=== PATIENT | female | born 1995 | race Caucasian/White ===

== ENCOUNTER 2020-03-21 19:22 | Emergency (ER) | payer OTHER, SELFPAY ==
[2020-03-21 19:31] VITALS: BP 140/75; PULSE 91; RESP 14; TEMP 36.8; O2SAT 100; BMI 40.4
--- NOTE | 2020-03-21 20:15 | ED_ITS ---
Documented by User: Bridget Gonzales 03/21/20 22:06 HPI - Abdominal Pain General: Chief Complaint: Abdominal Pain Stated Complaint: kidney problems Time Seen by Provider: 03/21/20 20:07 Source: patient Mode of arrival: ambulatory Limitations: no limitations History of Present Illness: HPI narrative: Kristyn is a nice 24-year-old female comes in complaining bilateral lower back pain. She states she feels like she has a kidney infection. She had similar kidney infections in the past with similar symptoms. She denies fever or vomiting. She had nausea. States she has urinary frequency, urgency and dysuria. Patient denies any flank pain or pain that radiates around from her upper back to her lower back. All her pain is located in her lower back and is bilateral. Patient denies any chest pain, vaginal discharge or bleeding, diarrhea or any other complaint. Associated Symptoms: Reports dysuria and nausea; Denies chills, coffee ground emesis, constipation, GI cramping, diarrhea, fever(s), heartburn, hematochezia, hematuria, hematemesis, melena, syncope and vomiting Review of Systems Const: Denies: fever(s), chills, body aches, fatigue, malaise or diaphoresis Eyes: Denies: change in vision, blurry vision, photophobia, eye discomfort, eye discharge, eye redness or yellow eyes ENMT: Denies: throat pain, odynophagia, hoarseness, swelling of lips/tongue, ear or mastoid pain, ear discharge, change in hearing or nasal discharge Card: Denies: chest pain, palpitations, irregular heart rhythm, edema, lightheadedness, syncope, pre-syncope, dyspnea on exertion or orthopnea Resp: Denies: dyspnea, productive cough, non-productive cough, wheezing, hemoptysis or chest congestion GI: Reports: nausea; Denies: abdominal pain, vomiting, hematemesis, coffee ground emesis, heartburn, diarrhea, constipation, GI cramping, hematochezia or melena : Reports: dysuria, urinary frequency and urinary urgency; Denies: flank pain or hematuria Musc: Denies: neck pain, extremity pain, extremity swelling, joint pain, joint swelling, joint redness, joint warmth or joint stiffness Skin/Breast: Denies: rash, pruritus, erythema, skin pain or skin tenderness Neuro: Denies: headache(s), numbness in extremities, weakness in extremities, sensory changes, lack of coordination, difficulty walking, dizziness, vertigo, confusion, Slurred speech present or seizure-like activity Tenzin/Lymph: Denies: easy bruising, easy bleeding, petechiae, purpura or enlarged lymph nodes All/Imm: Denies: urticaria, throat swelling, tongue swelling, facial swelling or acute wheezing PFSH ED PFSH: Medical History (Updated 03/21/20 @ 22:46 by Leia Rosales MD) Hypothyroidism Surgical History (Updated 03/21/20 @ 20:17 by Bridget Gonzales) S/P cholecystectomy Social History (Updated 03/21/20 @ 18:31 by Ingrid Melissa LPN) Smoking and tobacco status: never smoked Alcohol intake: never Physical Exam Const: COMMON NORMALS: no acute distress, patient oriented x3, no limitations and alert GENERAL APPEARANCE: cooperative HENMT: COMMON NORMALS: normocephalic, atraumatic, external ears normal, EAC's normal and Normal external nose present HEAD & SCALP: normal to inspection, normocephalic and atraumatic FACE & SINUS: normal facial exam and face symmetric NOSE: Normal external nose present and Normal nares present EXTERNAL EAR: Yes external ears normal EXTERNAL AUDITORY CANAL: EAC's normal MOUTH: Normal oral and palatal mucosa present, lip normal and tongue normal Eye: COMMON NORMALS: Equal, round and reactive pupils present and conjunctivae normal GENERAL EYE: appearance normal, both eyes and all related structures ALIGNMENT: Yes alignment normal PERIORBITAL: periorbital findings normal EYELID: eyelids normal CONJUNCTIVA: Yes conjunctivae normal SCLERA: sclerae normal PUPIL: Yes Equal, round and reactive pupils present Neck/C-Spine: COMMON NORMALS: full ROM, no lymphadenopathy, supple, no meningeal signs and no JVD GENERAL: Yes normal visual inspection and Yes trachea midline Chest: COMMONS NORMALS: normal inspection of the chest and normal palpation of entire chest wall Resp: COMMON NORMALS: normal respiratory effort, No retractions, No use of accessory muscles and clear to auscultation bilaterally EFFORT & INSPECTION: Yes able to speak in complete sentences and Yes symmetric chest movement AUSCULTATION: clear to auscultation bilaterally, no crackles, no rales, no rhonchi and no wheezes Cardio: COMMON NORMALS: no JVD, regular rate, regular rhythm, S1 normal heart sound present and S2 normal heart sound present RATE: regular rate RHYTHM: regular rhythm HEART SOUNDS: S1 normal heart sound present, S2 normal heart sound present, no click, no gallops, no murmurs and no rubs GI: COMMON NORMALS: Soft to palpation and No hepatosplenomegaly present PALPATION: Yes Soft to palpation, No Tenderness to palpation present (GI), No Guarding due to palpation present (GI), No Rigid due to palpation, Yes No hepatosplenomegaly present, No Hernia present, No Palpable mass present and No Pulsatile mass present : COMMON NORMALS: Yes no CVA tenderness BLADDER/KIDNEY EXAM: Yes no CVA tenderness EXTERNAL FEMALE EXAM: No Hernia present Back/Pelvis: COMMON NORMALS: no CVA tenderness, thoracic and lumbar spine normal to inspection, no thoracic nor lumbar tenderness and thoraco-lumbar ROM normal Extremity: COMMON NORMALS: normal to inspection, full ROM, capillary refill normal, no joint enlargement, no clubbing, cyanosis or edema and no calf tenderness Neuro: COMMON NORMALS: patient oriented x3, CN's II-XII intact bilaterally, moves all extremities, no focal motor deficits and no sensory deficits noted SENSORIUM/ORIENTATION: Yes alert MENINGEAL SIGNS: Yes no meningeal signs SPEECH: speech normal Psych: COMMON NORMALS: mental status grossly normal, Normal thought process present, cooperative, normal affect, speech normal and activity/motor behavior normal SPEECH: Yes normal speech THOUGHT PROCESS: Normal thought process present Skin: COMMON NORMALS: no rashes or lesions noted, turgor normal, no jaundice, no petechiae and no mottling GENERAL SKIN EXAM: no rashes or lesions noted and turgor normal Course Vital Signs: Vital signs: Vital Signs Temperature 98.3 F 03/21/20 19:31 Pulse Rate 90 03/21/20 22:58 Respiratory Rate 16 03/21/20 22:58 Blood Pressure 128/78 03/21/20 22:58 Pulse Oximetry 95 03/21/20 22:58 MDM - Abdominal Pain Lab Data: Labs: Lab Results 03/21/20 03/21/20 03/21/20 Range/Units 20:20 20:20 20:20 WBC 12.5 H (4.0-10.0) 10^3/ uL RBC 5.12 (4.1-5.3) 10^6/u L Hgb 11.9 (11.5-15.3) g/dL Hct 38.3 (37.0-47.0) % MCV 74.8 L (81-99) fL MCH 23.2 L (28.0-34.0) pg MCHC 31.1 (30.0-36.0) g/dL RDW 16.2 H (12.1-15.1) % Plt Count 400 (130-400) 10^3/c mm MPV 9.9 (7.4-10.4) fL Neut % (Auto) 72.4 % Lymph % (Auto) 20.1 % [place] % (Auto) 5.9 % Eos % (Auto) 0.8 % Baso % (Auto) 0.5 % Neut # (Auto) 9.02 H (1.8-7.7) 10^3/u L Lymph # (Auto) 2.5 (0.8-4.8) 10^3/u L [place] # (Auto) 0.7 (0.2-0.9) 10^3/u L Eos # (Auto) 0.1 (0.0-0.8) 10^3/u L Baso # (Auto) 0.1 (0.0-0.1) 10^3/u L Nucleated RBC % (a uto) 0 % Nucleated RBCs # 0.0 /100WBC Sodium 135 L (136-145) mmol/L Potassium 4.0 (3.5-5.1) mmol/L Chloride 100 (98-107) mmol/L Carbon Dioxide 23 (22-29) mmol/L Anion Gap 16.0 (5-19) BUN 10 (6-20) mg/dL Creatinine 0.8 (0.5-0.9) mg/dL GFR Calculation 88.9 L (90-130) mL/min Glucose 104 (65-115) mg/dL Calculated Osmolal ity 279 L (285-295) mOsm/k g Lactic Acid (0.5-2.2) mmol/L Calcium 9.5 (8.5-10.5) mg/dL Total Bilirubin 0.2 (0.15-1.2) mg/dL AST 18 (0-32) U/L ALT 13 (0-33) U/L Alkaline Phosphata se 100 (35-105) IU/L Total Protein 8.1 (6.6-8.7) g/dL Albumin 4.2 (3.5-5.2) g/dL Globulin 3.9 (1.3-4.6) g/dL Lipase 32 (13-60) U/L HCG, Qual Negative (Negative) Urine Color Urine Appearance Urine pH Ur Specific Gravit y Urine Protein Urine Glucose (UA) Urine Ketones Urine Blood Urine Nitrate Urine Bilirubin Prot Sulfosalicyli c Acd Urine Urobilinogen Ur Leukocyte Diamond ase Urine RBC Urine WBC Ur Squamous Epith Cells Ur Transition Epit h Cell Ur Renal Epithelia l Cell Calcium Oxalate Cr ystal Uric Acid Crystals Triple Phos Sally ls Other Crystals Amorphous Sediment Urine Bacteria Hyaline Casts Fine Granular Cast s Coarse Granular Ca sts RBC Casts Other Casts Urine Mucus Urine Trichomonas Urine Yeast Urine Sperm Ur Oval Fat Bodies 03/21/20 03/21/20 03/21/20 Range/Units 20:20 20:44 21:49 WBC (4.0-10.0) 10^3/ uL RBC (4.1-5.3) 10^6/u L Hgb (11.5-15.3) g/dL Hct (37.0-47.0) % MCV (81-99) fL MCH (28.0-34.0) pg MCHC (30.0-36.0) g/dL RDW (12.1-15.1) % Plt Count (130-400) 10^3/c mm MPV (7.4-10.4) fL Neut % (Auto) % Lymph % (Auto) % [place] % (Auto) % Eos % (Auto) % Baso % (Auto) % Neut # (Auto) (1.8-7.7) 10^3/u L Lymph # (Auto) (0.8-4.8) 10^3/u L [place] # (Auto) (0.2-0.9) 10^3/u L Eos # (Auto) (0.0-0.8) 10^3/u L Baso # (Auto) (0.0-0.1) 10^3/u L Nucleated RBC % (a uto) % Nucleated RBCs # /100WBC Sodium (136-145) mmol/L Potassium (3.5-5.1) mmol/L Chloride (98-107) mmol/L Carbon Dioxide (22-29) mmol/L Anion Gap (5-19) BUN (6-20) mg/dL Creatinine (0.5-0.9) mg/dL GFR Calculation (90-130) mL/min Glucose (65-115) mg/dL Calculated Osmolal ity (285-295) mOsm/k g Lactic Acid 1.8 (0.5-2.2) mmol/L Calcium (8.5-10.5) mg/dL Total Bilirubin (0.15-1.2) mg/dL AST (0-32) U/L ALT (0-33) U/L Alkaline Phosphata se (35-105) IU/L Total Protein (6.6-8.7) g/dL Albumin (3.5-5.2) g/dL Globulin (1.3-4.6) g/dL Lipase (13-60) U/L HCG, Qual (Negative) Urine Color Cancelled Cancelled Urine Appearance Cancelled Cancelled Urine pH Cancelled Cancelled Ur Specific Gravit y Cancelled Cancelled Urine Protein Cancelled Cancelled Urine Glucose (UA) Cancelled Cancelled Urine Ketones Cancelled Cancelled Urine Blood Cancelled Cancelled Urine Nitrate Cancelled Cancelled Urine Bilirubin Cancelled Cancelled Prot Sulfosalicyli c Acd Cancelled Cancelled Urine Urobilinogen Cancelled Cancelled Ur Leukocyte Diamond ase Cancelled Cancelled Urine RBC Cancelled Urine WBC Cancelled Ur Squamous Epith Cells Cancelled Ur Transition Epit h Cell Cancelled Ur Renal Epithelia l Cell Cancelled Calcium Oxalate Cr ystal Cancelled Uric Acid Crystals Cancelled Triple Phos Sally ls Cancelled Other Crystals Cancelled Amorphous Sediment Cancelled Urine Bacteria Cancelled Hyaline Casts Cancelled Fine Granular Cast s Cancelled Coarse Granular Ca sts Cancelled RBC Casts Cancelled Other Casts Cancelled Urine Mucus Cancelled Urine Trichomonas Cancelled Urine Yeast Cancelled Urine Sperm Cancelled Ur Oval Fat Bodies Cancelled 03/21/20 Range/Units 21:49 WBC (4.0-10.0) 10^3/ uL RBC (4.1-5.3) 10^6/u L Hgb (11.5-15.3) g/dL Hct (37.0-47.0) % MCV (81-99) fL MCH (28.0-34.0) pg MCHC (30.0-36.0) g/dL RDW (12.1-15.1) % Plt Count (130-400) 10^3/c mm MPV (7.4-10.4) fL Neut % (Auto) % Lymph % (Auto) % [place] % (Auto) % Eos % (Auto) % Baso % (Auto) % Neut # (Auto) (1.8-7.7) 10^3/u L Lymph # (Auto) (0.8-4.8) 10^3/u L [place] # (Auto) (0.2-0.9) 10^3/u L Eos # (Auto) (0.0-0.8) 10^3/u L Baso # (Auto) (0.0-0.1) 10^3/u L Nucleated RBC % (a uto) % Nucleated RBCs # /100WBC Sodium (136-145) mmol/L Potassium (3.5-5.1) mmol/L Chloride (98-107) mmol/L Carbon Dioxide (22-29) mmol/L Anion Gap (5-19) BUN (6-20) mg/dL Creatinine (0.5-0.9) mg/dL GFR Calculation (90-130) mL/min Glucose (65-115) mg/dL Calculated Osmolal ity (285-295) mOsm/k g Lactic Acid (0.5-2.2) mmol/L Calcium (8.5-10.5) mg/dL Total Bilirubin (0.15-1.2) mg/dL AST (0-32) U/L ALT (0-33) U/L Alkaline Phosphata se (35-105) IU/L Total Protein (6.6-8.7) g/dL Albumin (3.5-5.2) g/dL Globulin (1.3-4.6) g/dL Lipase (13-60) U/L HCG, Qual (Negative) Urine Color Yellow Urine Appearance Clear Urine pH 6.5 Ur Specific Gravit y 1.005 Urine Protein Neg Urine Glucose (UA) Norm Urine Ketones Negative Urine Blood 3+ H Urine Nitrate Negative Urine Bilirubin Neg Prot Sulfosalicyli c Acd Urine Urobilinogen Norm Ur Leukocyte Diamond ase 2+ H Urine RBC 25-40 H Urine WBC 55-80 H Ur Squamous Epith Cells 15-25 H Ur Transition Epit h Cell Ur Renal Epithelia l Cell Calcium Oxalate Cr ystal Uric Acid Crystals Triple Phos Sally ls Other Crystals Amorphous Sediment Not Reportable Urine Bacteria 1+ H Hyaline Casts Fine Granular Cast s Coarse Granular Ca sts RBC Casts Other Casts Urine Mucus Urine Trichomonas Urine Yeast Urine Sperm Ur Oval Fat Bodies Discharge Plan Discharge Patient Disposition: Home Clinical Impression: Acute cystitis Qualifiers: Hematuria presence: without hematuria Qualified Code(s): N30.00 - Acute cystitis without hematuria Condition: Stable Prescriptions: [place] 5-325 mg tablet 1 tab PO Q6H PRN (Reason: pain) Qty: 14 RF: 0 Keflex 500 mg capsule 500 mg PO Q6H 7 Days Qty: 28 RF: 0 ondansetron 4 mg tablet,disintegrating 4 mg PO Q6H PRN (Reason: nausea and vomiting) Qty: 14 RF: 0 Cipro 500 mg tablet 500 mg PO BID Qty: 10 RF: 0 No Action ciprofloxacin HCl [Cipro] 500 mg tablet 500 mg PO BID 7 Days Qty: 14 RF: 0 Discharge Orders: Discharge Order (Routine); Ordered 03/21/20 Ordered By: Leia Rosales Discharge Diet: Advance as tolerated Discharge Activity: Resume usual activity Patient Instructions: Urinary Tract Infection in Women (ED) Discharge Date/Time: 03/21/20 22:59 Sign Out Sign Out Data: Patient Sign Out occurred on 03/21/20 at 22:26. Patient's care was discussed, and care was transferred from to EDDEI Jolley. Coding Level of Care Code ED Wire Galvanizer for Chg Fwd Exam Comprehensive Documented by User: Leia Rosales MD 03/21/20 23:01 HPI - Abdominal Pain General: Chief Complaint: Abdominal Pain Stated Complaint: kidney problems Time Seen by Provider: 03/21/20 20:07 PFSH ED PFSH: Medical History (Updated 03/21/20 @ 22:46 by Leia Rosales MD) Hypothyroidism Surgical History (Updated 03/21/20 @ 20:17 by Bridget Gonzales) S/P cholecystectomy Social History (Updated 03/21/20 @ 18:31 by Ingrid Melissa LPN) Smoking and tobacco status: never smoked Alcohol intake: never Course Vital Signs: Vital signs: Vital Signs Temperature 98.3 F 03/21/20 19:31 Pulse Rate 90 03/21/20 22:58 Respiratory Rate 16 03/21/20 22:58 Blood Pressure 128/78 03/21/20 22:58 Pulse Oximetry 95 03/21/20 22:58 MDM - Abdominal Pain MDM Narrative: Medical decision making narrative: Patient presents here with cystitis possible pyelonephritis. Patient CT scan here shows no kidney stone. Will place patient on antibiotics along with pain meds. She is stable for discharge and return if worsening. Lab Data: Labs: Lab Results 03/21/20 03/21/20 03/21/20 Range/Units : 20:20 20:20 WBC 12.5 H (4.0-10.0) 10^3/ uL RBC 5.12 (4.1-5.3) 10^6/u L Hgb 11.9 (11.5-15.3) g/dL Hct 38.3 (37.0-47.0) % MCV 74.8 L (81-99) fL MCH 23.2 L (28.0-34.0) pg MCHC 31.1 (30.0-36.0) g/dL RDW 16.2 H (12.1-15.1) % Plt Count 400 (130-400) 10^3/c mm MPV 9.9 (7.4-10.4) fL Neut % (Auto) 72.4 % Lymph % (Auto) 20.1 % [place] % (Auto) 5.9 % Eos % (Auto) 0.8 % Baso % (Auto) 0.5 % Neut # (Auto) 9.02 H (1.8-7.7) 10^3/u L Lymph # (Auto) 2.5 (0.8-4.8) 10^3/u L [place] # (Auto) 0.7 (0.2-0.9) 10^3/u L Eos # (Auto) 0.1 (0.0-0.8) 10^3/u L Baso # (Auto) 0.1 (0.0-0.1) 10^3/u L Nucleated RBC % (a uto) 0 % Nucleated RBCs # 0.0 /100WBC Sodium 135 L (136-145) mmol/L Potassium 4.0 (3.5-5.1) mmol/L Chloride 100 (98-107) mmol/L Carbon Dioxide 23 (22-29) mmol/L Anion Gap 16.0 (5-19) BUN 10 (6-20) mg/dL Creatinine 0.8 (0.5-0.9) mg/dL GFR Calculation 88.9 L (90-130) mL/min Glucose 104 (65-115) mg/dL Calculated Osmolal ity 279 L (285-295) mOsm/k g Lactic Acid (0.5-2.2) mmol/L Calcium 9.5 (8.5-10.5) mg/dL Total Bilirubin 0.2 (0.15-1.2) mg/dL AST 18 (0-32) U/L ALT 13 (0-33) U/L Alkaline Phosphata se 100 (35-105) IU/L Total Protein 8.1 (6.6-8.7) g/dL Albumin 4.2 (3.5-5.2) g/dL Globulin 3.9 (1.3-4.6) g/dL Lipase 32 (13-60) U/L HCG, Qual Negative (Negative) Urine Color Urine Appearance Urine pH Ur Specific Gravit y Urine Protein Urine Glucose (UA) Urine Ketones Urine Blood Urine Nitrate Urine Bilirubin Prot Sulfosalicyli c Acd Urine Urobilinogen Ur Leukocyte Diamond ase Urine RBC Urine WBC Ur Squamous Epith Cells Ur Transition Epit h Cell Ur Renal Epithelia l Cell Calcium Oxalate Cr ystal Uric Acid Crystals Triple Phos Sally ls Other Crystals Amorphous Sediment Urine Bacteria Hyaline Casts Fine Granular Cast s Coarse Granular Ca sts RBC Casts Other Casts Urine Mucus Urine Trichomonas Urine Yeast Urine Sperm Ur Oval Fat Bodies 03/21/20 03/21/20 03/21/20 Range/Units 20:20 20:44 21:49 WBC (4.0-10.0) 10^3/ uL RBC (4.1-5.3) 10^6/u L Hgb (11.5-15.3) g/dL Hct (37.0-47.0) % MCV (81-99) fL MCH (28.0-34.0) pg MCHC (30.0-36.0) g/dL RDW (12.1-15.1) % Plt Count (130-400) 10^3/c mm MPV (7.4-10.4) fL Neut % (Auto) % Lymph % (Auto) % [place] % (Auto) % Eos % (Auto) % Baso % (Auto) % Neut # (Auto) (1.8-7.7) 10^3/u L Lymph # (Auto) (0.8-4.8) 10^3/u L [place] # (Auto) (0.2-0.9) 10^3/u L Eos # (Auto) (0.0-0.8) 10^3/u L Baso # (Auto) (0.0-0.1) 10^3/u L Nucleated RBC % (a uto) % Nucleated RBCs # /100WBC Sodium (136-145) mmol/L Potassium (3.5-5.1) mmol/L Chloride (98-107) mmol/L Carbon Dioxide (22-29) mmol/L Anion Gap (5-19) BUN (6-20) mg/dL Creatinine (0.5-0.9) mg/dL GFR Calculation (90-130) mL/min Glucose (65-115) mg/dL Calculated Osmolal ity (285-295) mOsm/k g Lactic Acid 1.8 (0.5-2.2) mmol/L Calcium (8.5-10.5) mg/dL Total Bilirubin (0.15-1.2) mg/dL AST (0-32) U/L ALT (0-33) U/L Alkaline Phosphata se (35-105) IU/L Total Protein (6.6-8.7) g/dL Albumin (3.5-5.2) g/dL Globulin (1.3-4.6) g/dL Lipase (13-60) U/L HCG, Qual (Negative) Urine Color Cancelled Cancelled Urine Appearance Cancelled Cancelled Urine pH Cancelled Cancelled Ur Specific Gravit y Cancelled Cancelled Urine Protein Cancelled Cancelled Urine Glucose (UA) Cancelled Cancelled Urine Ketones Cancelled Cancelled Urine Blood Cancelled Cancelled Urine Nitrate Cancelled Cancelled Urine Bilirubin Cancelled Cancelled Prot Sulfosalicyli c Acd Cancelled Cancelled Urine Urobilinogen Cancelled Cancelled Ur Leukocyte Diamond ase Cancelled Cancelled Urine RBC Cancelled Urine WBC Cancelled Ur Squamous Epith Cells Cancelled Ur Transition Epit h Cell Cancelled Ur Renal Epithelia l Cell Cancelled Calcium Oxalate Cr ystal Cancelled Uric Acid Crystals Cancelled Triple Phos Sally ls Cancelled Other Crystals Cancelled Amorphous Sediment Cancelled Urine Bacteria Cancelled Hyaline Casts Cancelled Fine Granular Cast s Cancelled Coarse Granular Ca sts Cancelled RBC Casts Cancelled Other Casts Cancelled Urine Mucus Cancelled Urine Trichomonas Cancelled Urine Yeast Cancelled Urine Sperm Cancelled Ur Oval Fat Bodies Cancelled 03/21/20 Range/Units 21:49 WBC (4.0-10.0) 10^3/ uL RBC (4.1-5.3) 10^6/u L Hgb (11.5-15.3) g/dL Hct (37.0-47.0) % MCV (81-99) fL MCH (28.0-34.0) pg MCHC (30.0-36.0) g/dL RDW (12.1-15.1) % Plt Count (130-400) 10^3/c mm MPV (7.4-10.4) fL Neut % (Auto) % Lymph % (Auto) % [place] % (Auto) % Eos % (Auto) % Baso % (Auto) % Neut # (Auto) (1.8-7.7) 10^3/u L Lymph # (Auto) (0.8-4.8) 10^3/u L [place] # (Auto) (0.2-0.9) 10^3/u L Eos # (Auto) (0.0-0.8) 10^3/u L Baso # (Auto) (0.0-0.1) 10^3/u L Nucleated RBC % (a uto) % Nucleated RBCs # /100WBC Sodium (136-145) mmol/L Potassium (3.5-5.1) mmol/L Chloride (98-107) mmol/L Carbon Dioxide (22-29) mmol/L Anion Gap (5-19) BUN (6-20) mg/dL Creatinine (0.5-0.9) mg/dL GFR Calculation (90-130) mL/min Glucose (65-115) mg/dL Calculated Osmolal ity (285-295) mOsm/k g Lactic Acid (0.5-2.2) mmol/L Calcium (8.5-10.5) mg/dL Total Bilirubin (0.15-1.2) mg/dL AST (0-32) U/L ALT (0-33) U/L Alkaline Phosphata se (35-105) IU/L Total Protein (6.6-8.7) g/dL Albumin (3.5-5.2) g/dL Globulin (1.3-4.6) g/dL Lipase (13-60) U/L HCG, Qual (Negative) Urine Color Yellow Urine Appearance Clear Urine pH 6.5 Ur Specific Gravit y 1.005 Urine Protein Neg Urine Glucose (UA) Norm Urine Ketones Negative Urine Blood 3+ H Urine Nitrate Negative Urine Bilirubin Neg Prot Sulfosalicyli c Acd Urine Urobilinogen Norm Ur Leukocyte Diamond ase 2+ H Urine RBC 25-40 H Urine WBC 55-80 H Ur Squamous Epith Cells 15-25 H Ur Transition Epit h Cell Ur Renal Epithelia l Cell Calcium Oxalate Cr ystal Uric Acid Crystals Triple Phos Salyl ls Other Crystals Amorphous Sediment Not Reportable Urine Bacteria 1+ H Hyaline Casts Fine Granular Cast s Coarse Granular Ca sts RBC Casts Other Casts Urine Mucus Urine Trichomonas Urine Yeast Urine Sperm Ur Oval Fat Bodies Imaging Data ^: CT Abd/Pel: Radiologist's impression: [address] [address] [address] Scan Report Signed Patient: Kristyn Montelongo Unit #: [id number] : 1995 Age/Sex: 24 / F ADM Date: 03/21/20 Loc: ER Room/Bed: Attending Dr: Ordering Provider/Ordering MD: Bridget Gonzales DO Date of Service: 03/21/20 Procedure(s): CT kidney stone 93544 Accession Number(s): [id number] Report Number: [id number] PROCEDURE INFORMATION: Exam: CT Abdomen And Pelvis Without Contrast Exam date and time: 03/21/2020 10:22 PM Age: 24 years old Clinical indication: Abdominal pain; Flank; Right; Prior surgery; Surgery date: 6+ months; Surgery type: Gb; Additional info: Bilateral flank/abdominal pain TECHNIQUE: Imaging protocol: Computed tomography of the abdomen and pelvis without contrast. Radiation optimization: All CT scans at this facility use at least one of these dose optimization techniques: automated exposure control; mA and/or kV adjustment per patient size (includes targeted exams where dose is matched to clinical indication); or iterative reconstruction. COMPARISON: CT abdomen pelvis wo con [id number] 02/02/2018 5:20 PM RADIATION DOSE METRICS: Total DLP (mGy-cm): 1711.08 FINDINGS: Liver: Normal. No mass. Gallbladder and bile ducts: The gallbladder has been removed. Pancreas: Normal. No ductal dilation. Spleen: Small incidental splenules. Adrenals: Normal. No mass. Kidneys and ureters: Normal. No hydronephrosis. Stomach and bowel: Unremarkable. No obstruction. No mucosal thickening. Appendix: A normal appendix is identified. Intraperitoneal space: There is a physiologic amount of free fluid in the pelvis. Vasculature: Unremarkable. No abdominal aortic aneurysm. Lymph nodes: Unremarkable. No enlarged lymph nodes. Bladder: Unremarkable as visualized. Reproductive: Unremarkable as visualized. Bones/joints: Unremarkable. No acute fracture. Soft tissues: Tiny fat containing umbilical hernia. CT/CT kidney stone [id number] IMPRESSION: No acute findings.Non acute findings as described above. Discharge Plan Discharge Patient Disposition: Home Clinical Impression: Acute cystitis Qualifiers: Hematuria presence: without hematuria Qualified Code(s): N30.00 - Acute cystitis without hematuria Condition: Stable Prescriptions: [place] 5-325 mg tablet 1 tab PO Q6H PRN (Reason: pain) Qty: 14 RF: 0 Keflex 500 mg capsule 500 mg PO Q6H 7 Days Qty: 28 RF: 0 ondansetron 4 mg tablet,disintegrating 4 mg PO Q6H PRN (Reason: nausea and vomiting) Qty: 14 RF: 0 Cipro 500 mg tablet 500 mg PO BID Qty: 10 RF: 0 No Action ciprofloxacin HCl [Cipro] 500 mg tablet 500 mg PO BID 7 Days Qty: 14 RF: 0 Discharge Orders: Discharge Order (Routine); Ordered 03/21/20 Ordered By: Leia Rosales Discharge Diet: Advance as tolerated Discharge Activity: Resume usual activity Patient Instructions: Urinary Tract Infection in Women (ED) Discharge Date/Time: 03/21/20 22:59 Sign Out Sign Out Data: Patient Sign Out occurred on 03/21/20 at 22:26. Patient's care was discussed, and care was transferred from to EDDIE Jolley. Coding Level of Care Code ED Wire Galvanizer for Chg Fwd Exam Comprehensive
[2020-03-21] MEDS: sodium chloride 0.9% 1,000 ML 100 ML IV (20:21)
[2020-03-21 20:22] VITALS: RESP 16; O2SAT 98
[2020-03-21] MEDS: ondansetron 2 mg/ML SDV 2 mL 4 MG IVP (20:22)
[2020-03-21] MEDS: morphine 4 mg/mL SDV 1 mL IVP (20:22)
[2020-03-21 20:27] VITALS: BP 140/101; PULSE 89; RESP 20; O2SAT 98
[2020-03-21 20:33] LABS: Basophils # 0.1 10^3/uL (0.0-0.1); Basophils % 0.5 %; Eosinophils # 0.1 10^3/uL (0.0-0.8); Eosinophils % 0.8 %; Hematocrit 38.3 % (37.0-47.0); Hemoglobin 11.9 g/dL (11.5-15.3); Lymphocytes # 2.5 10^3/uL (0.8-4.8); Lymphocytes % 20.1 %; Mean Corpuscular HGB Conc 31.1 g/dL (30.0-36.0); Mean Corpuscular Hemoglobin 23.2 pg (28.0-34.0); Mean Corpuscular Volume 74.8 fL (81-99); Mean Platelet Volume 9.9 fL (7.4-10.4); Monocytes # 0.7 10^3/uL (0.2-0.9); Monocytes % 5.9 %; Neutrophils # 9.02 10^3/uL (1.8-7.7); Neutrophils % 72.4 %; Nucleated Red Blood Cells % 0 %; Platelet Count 400 10^3/cmm (130-400); Red Blood Count 5.12 10^6/uL (4.1-5.3); Red Cell Distribution Width 16.2 % (12.1-15.1); White Blood Count 12.5 10^3/uL (4.0-10.0)
[2020-03-21 20:45] LABS: HCG, Serum Qual Negative (Negative)
[2020-03-21 20:51] LABS: Lactic Sepsis W/Reflex 1.8 mmol/L (0.5-2.2)
[2020-03-21 20:52] LABS: Alanine Aminotransferase 13 U/L (0-33); Albumin Level 4.2 g/dL (3.5-5.2); Alkaline Phosphatase 100 IU/L (35-105); Aspartate Amino Transferase 18 U/L (0-32); Blood Urea Nitrogen 10 mg/dL (6-20); Calcium 9.5 mg/dL (8.5-10.5); Carbon Dioxide 23 mmol/L (22-29); Chloride 100 mmol/L (98-107); Globulin 3.9 g/dL (1.3-4.6); Glomerular Filtration Rate 88.9 mL/min (90-130); Glucose 104 mg/dL (65-115); Lipase 32 U/L (13-60); Osmolality Calculated 279 mOsm/kg (285-295); Sodium 135 mmol/L (136-145); Total Bilirubin 0.2 mg/dL (0.15-1.2); Total Protein 8.1 g/dL (6.6-8.7)
--- NOTE | 2020-03-21 21:02 | CTR_ITS ---
PROCEDURE INFORMATION: Exam: CT Abdomen And Pelvis Without Contrast Exam date and time: 03/21/2020 10:22 PM Age: 24 years old Clinical indication: Abdominal pain; Flank; Right; Prior surgery; Surgery date: 6+ months; Surgery type: Gb; Additional info: Bilateral flank/abdominal pain TECHNIQUE: Imaging protocol: Computed tomography of the abdomen and pelvis without contrast. Radiation optimization: All CT scans at this facility use at least one of these dose optimization techniques: automated exposure control; mA and/or kV adjustment per patient size (includes targeted exams where dose is matched to clinical indication); or iterative reconstruction. COMPARISON: CT abdomen pelvis wo con [id number] 02/02/2018 5:20 PM RADIATION DOSE METRICS: Total DLP (mGy-cm): 1711.08 FINDINGS: Liver: Normal. No mass. Gallbladder and bile ducts: The gallbladder has been removed. Pancreas: Normal. No ductal dilation. Spleen: Small incidental splenules. Adrenals: Normal. No mass. Kidneys and ureters: Normal. No hydronephrosis. Stomach and bowel: Unremarkable. No obstruction. No mucosal thickening. Appendix: A normal appendix is identified. Intraperitoneal space: There is a physiologic amount of free fluid in the pelvis. Vasculature: Unremarkable. No abdominal aortic aneurysm. Lymph nodes: Unremarkable. No enlarged lymph nodes. Bladder: Unremarkable as visualized. Reproductive: Unremarkable as visualized. Bones/joints: Unremarkable. No acute fracture. Soft tissues: Tiny fat containing umbilical hernia. CT/CT kidney stone [id number] IMPRESSION: No acute findings.Non acute findings as described above. Radiation Dose CTDIVOL = (mGy): DLP = 1711.08 (mGy-cm)
[2020-03-21] MEDS: cefTRIAXone 1,000 MG in sodium chloride 0.9% (plus) 50 ML 100 MG IV (21:14)
[2020-03-21 21:16] VITALS: PULSE 72; RESP 16; O2SAT 97
[2020-03-21 22:03] LABS: Bilirubin Urine Neg (Negative); Blood Urine 3+ (Negative); Glucose Urine UA Norm (Normal); Ketones Urine Negative (Negative); Leukocyte Esterase Urine 2+ (Negative); Nitrate Urine Negative (Negative); Protein Urine Neg (Negative); Specific Gravity, Urine 1.005 (1.005-1.030); Urine Appearance Clear (CLEAR); Urine Color Yellow (Yellow); Urobilinogen Urine Norm (Negative); pH Urine 6.5 (5-7)
[2020-03-21 22:09] LABS: Add Urine Culture? Yes; Bacteria Urine 1+ /hpf; RBC Urine 25-40 /hpf (0-2); Squamous Epithelial Cell Urine 15-25 /hpf (0-5); WBC Urine 55-80 /hpf (0-5)
[2020-03-21 22:55] VITALS: BP 128/78; PULSE 85; RESP 16; O2SAT 100
[2020-03-21] MEDS: HYDROcodone-acetaminophen 5-325 mg Tablet 1 TAB PO (22:57)
[2020-03-21 22:58] VITALS: BP 128/78; PULSE 90; RESP 16; O2SAT 95
== END 2020-03-21 22:59 | disposition home or self-care (01) ==
PROVIDERS: Emergency Medicine; Physician Assistant; Emergency Provider Emergency Medicine
DX: R11.0 Nausea (principal); N30.00 Acute cystitis without hematuria
CPT/HCPCS: 12345; 74176; 80053; 81000; 81001; 83605; 83690; 84703; 85025; 87086; 96365; 96375; 99284; J0696; J2270; J2405; J7030

== ENCOUNTER → 2020-05-10 10:50 | Outpatient (BNVA) | payer OTHER, SELFPAY | PROVIDERS: Visit Provider Nurse Practitioner Family | DX: Z20.828 Contact with and (suspected) exposure to other viral communicable diseases (principal); J06.9 Acute upper respiratory infection, unspecified | CPT/HCPCS: 87635 ==

== ENCOUNTER → 2020-07-19 12:02 | Outpatient (BNVA) | payer SELFPAY | PROVIDERS: Visit Provider Nurse Practitioner Family | DX: Z20.828 Contact with and (suspected) exposure to other viral communicable diseases (principal) | CPT/HCPCS: 87635 ==

== ENCOUNTER 2020-10-23 23:24 | Emergency (ER) | payer BC, SELFPAY ==
[2020-10-23 23:31] VITALS: BP 144/99; PULSE 96; RESP 17; TEMP 36.8; O2SAT 98; BMI 39.6
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
[2020-10-24] MEDS: ibuprofen 800 mg tablet PO (00:35)
[2020-10-24] MEDS: HYDROcodone-acetaminophen 7.5-325 mg Tablet 1 TAB PO (00:35)
[2020-10-24 00:37] VITALS: BP 139/94; PULSE 93; RESP 16; TEMP 36.8; O2SAT 98
== END 2020-10-24 00:39 | disposition home or self-care (01) ==
PROVIDERS: Emergency Provider Nurse Practitioner Family
DX: S49.91XA Unspecified injury of right shoulder and upper arm, initial encounter (principal); F17.290 Nicotine dependence, other tobacco product, uncomplicated; V89.2XXA Person injured in unspecified motor-vehicle accident, traffic, initial encounter
CPT/HCPCS: 73000; 73030; 99283

== ENCOUNTER 2020-11-26 00:53 | Emergency (ER) | payer BC, SELFPAY ==
[2020-11-26 00:55] VITALS: BP 135/96; PULSE 77; RESP 18; TEMP 36.7; O2SAT 98; BMI 41.8
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
--- NOTE | 2020-11-26 01:20 | ECG_ITS ---
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 Measurements Intervals [place] Rate: 77 P: 36 [place]: 168 QRS: 25 QRSD: 110 T: 32 QT: 367 QTc: 417 Interpretive Statements SINUS RHYTHM POSSIBLE RIGHT VENTRICULAR CONDUCTION DELAY [RSR (QR) IN V1/V2] Compared to ECG 06/01/2015 12:01:02 Sinus arrhythmia no longer present Electronically Signed On 11-27-2020 9:48:34 CDT by Cary Henley M.D. [id number]
[2020-11-26 01:21] LABS: Basophils % 0.4 %; Eosinophils # 0.1 10^3/uL (0.0-0.8); Eosinophils % 1.4 %; Hematocrit 38.8 % (37.0-47.0); Hemoglobin 12.2 g/dL (11.5-15.3); Lymphocytes % 30.5 %; Mean Corpuscular HGB Conc 31.4 g/dL (30.0-36.0); Mean Corpuscular Hemoglobin 24.6 pg (28.0-34.0); Mean Corpuscular Volume 78.2 fL (81-99); Mean Platelet Volume 9.2 fL (7.4-10.4); Monocytes # 0.8 10^3/uL (0.2-0.9); Monocytes % 7.8 %; Neutrophils # 5.84 10^3/uL (1.8-7.7); Neutrophils % 59.5 %; Nucleated Red Blood Cells % 0 %; Platelet Count 402 10^3/cmm (130-400); Red Blood Count 4.96 10^6/uL (4.1-5.3); White Blood Count 9.8 10^3/uL (4.0-10.0)
[2020-11-26 01:50] LABS: Anion Gap 13.6 (5-19); Blood Urea Nitrogen 9 mg/dL (6-20); Calcium 8.7 mg/dL (8.5-10.5); Carbon Dioxide 26 mmol/L (22-29); Chloride 100 mmol/L (98-107); Glomerular Filtration Rate 102.8 mL/min (90-130); Glucose 109 mg/dL (65-115); Osmolality Calculated 281 mOsm/kg (285-295); Potassium 3.6 mmol/L (3.5-5.1); Sodium 136 mmol/L (136-145)
[2020-11-26 02:03] LABS: HCG Qualitative Urine. Negative (Negative)
[2020-11-26 02:07] LABS: Add Urine Microscopic? NO; Charge for UA Resulting for Rev
[2020-11-26 02:08] LABS: Blood Urine Neg (Negative); Glucose Urine UA Norm (Normal); Ketones Urine Negative (Negative); Protein Urine Neg (Negative); Urine Appearance Clear (CLEAR); Urine Color Yellow (Yellow); pH Urine 7 (5-7)
[2020-11-26 02:09] LABS: Bilirubin Urine Neg (Negative); Leukocyte Esterase Urine Negative (Negative); Nitrate Urine Negative (Negative); Urobilinogen Urine Norm (Negative)
[2020-11-26 02:22] VITALS: PULSE 82; O2SAT 97
== END 2020-11-26 02:22 | disposition home or self-care (01) ==
PROVIDERS: Emergency Provider Nurse Practitioner Family
DX: R55 Syncope and collapse (principal); M54.2 Cervicalgia; G44.209 Tension-type headache, unspecified, not intractable; F17.290 Nicotine dependence, other tobacco product, uncomplicated
CPT/HCPCS: 72040; 80048; 81003; 81025; 85025; 93005; 99283

== ENCOUNTER 2021-01-06 07:46 | Outpatient (CLI) | payer BC, SELFPAY ==
--- NOTE | 2021-01-06 08:09 | CT_ITS ---
WS: [id number] CT HEAD TECHNIQUE: Noncontrast and contrast-enhanced CT of the head. CLINICAL INFORMATION: MIGRAINE HEADACHES COMPARISON: 2018 DLP: 1851.[address] scans at [facility] use at least one of these dose optimization techniques: automat ed exposure control; mA and/or kV adjustment per patient size (includes targeted exams where dose is matched to clinical indication); or iterative reconstruction. FINDINGS: No evidence of intracranial hemorrhage or mass effect. Ventricular system and basal cisterns are cline nt. Normal grande-white differentiation. Normal posterior fossa. Normal fourth ventricle. No hydrocepha cameron. No abnormal intracranial enhancement. Mastoid air cells are well aerated. Paranasal sinuses are well aerated. CT/CT head wo/w con [id number] IMPRESSION: 1. No evidence of intracranial hemorrhage or mass effect. 2. Normal grande-white differentiation. 3. No hydrocephalus. 4. No abnormal intracranial enhancement. 5. No acute intracranial findings.
[2021-01-06] MEDS: iohexol 300 mg/mL 100 mL Btl IV (08:33)
== END 2021-01-06 07:47 | disposition home or self-care (01) ==
LOC: RADWPI 07:48
PROVIDERS: Visit Provider Nurse Practitioner Family
DX: G43.909 Migraine, unspecified, not intractable, without status migrainosus (principal)
CPT/HCPCS: 70470; Q9967

== ENCOUNTER → 2021-01-28 09:21 | Outpatient (BNVA) | payer BC, SELFPAY | PROVIDERS: PCP Nurse Practitioner Family; Visit Provider Nurse Practitioner | DX: G43.909 Migraine, unspecified, not intractable, without status migrainosus (principal); M54.2 Cervicalgia; Z86.16 Personal history of COVID-19; F17.290 Nicotine dependence, other tobacco product, uncomplicated | CPT/HCPCS: 99204 ==

== ENCOUNTER 2021-02-01 09:27 | Outpatient (CLI) | payer BC, SELFPAY ==
--- NOTE | 2021-02-01 10:30 | XR_ITS ---
WS: [id number] Cervical spine, 3 views, 02/01/2021 Clinical Data: M54.2 - Cervicalgia Comparison: Cervical spine, 11/26/2020. Findings: No compression fractures are seen. The disc heights are normal. There is no prevertebral so ft tissue swelling. The odontoid is unremarkable. The soft tissues of the neck and the lung apices ar e normal. XR/XR cervical spine 3V* [id number] Impression: Negative cervical spine.
== END 2021-02-01 09:28 | disposition home or self-care (01) ==
PROVIDERS: PCP Nurse Practitioner Family; Visit Provider Nurse Practitioner
DX: M54.2 Cervicalgia (principal)
CPT/HCPCS: 72040

== ENCOUNTER → 2024-09-23 10:49 | Outpatient (BNVA) | payer OTHER, SELFPAY | PROVIDERS: PCP Nurse Practitioner Family; Visit Provider Family Medicine | DX: J02.9 Acute pharyngitis, unspecified (principal) | CPT/HCPCS: 87071; 87880 ==

== ENCOUNTER 2025-01-26 14:08 | Outpatient (CLI) | payer MEDICAID, SELFPAY ==
[2025-01-26] VITALS (8 sets, daily range): BP systolic 117–169; BP diastolic 63–88; PULSE 77–85; RESP 17; O2SAT 98; BMI 46.0
[2025-01-26 14:59] LABS: Hematocrit 31.1 % (36-47); Hemoglobin 9.90 g/dL (11.27-16.99); Mean Corpuscular HGB Conc 31.8 g/dL (30-55); Mean Corpuscular Hemoglobin 24.3 pg (27-33); Mean Corpuscular Volume 76.2 fl (85-98); Nucleated Red Blood Cells % 0 %; Platelet Count 278 10^3/cmm (157-399); Red Blood Count 4.08 10^6/uL (3.85-5.65); White Blood Count 8.15 10^3/uL (3.29-11.43)
[2025-01-26 15:01] LABS: Glucose Urine UA Negative (Normal); Nitrate Urine Negative (Negative); Specific Gravity, Urine 1.014 (1.005-1.030)
[2025-01-26 15:06] LABS: Add Urine Microscopic? YES
[2025-01-26 15:11] LABS: Chloride 100 mmol/L (98-107); Potassium 3.9 mmol/L (3.5-5.1); Sodium 132 mmol/L (136-145)
[2025-01-26 15:18] LABS: UPRO/UCREAT Ratio 0.11 mg/mg CR
[2025-01-26 15:29] LABS: Alanine Aminotransferase 16 U/L (0-33); Albumin Level 3.3 g/dL (3.5-5.2); Alkaline Phosphatase 167 U/L (35-105); Anion Gap 15.9 (5-19); Aspartate Amino Transferase 16 U/L (0-32); Blood Urea Nitrogen 5 mg/dL (6-20); Calcium 8.7 mg/dL (8.5-10.5); Carbon Dioxide 20 mmol/L (22-29); Creatinine Clr Calc Pharmacy 238.7997; Globulin 3.8 g/dL (1.3-4.6); Glucose 87 mg/dL (65-115); Osmolality Calculated 271 mOsm/kg (285-295); Total Protein 7.1 g/dL (6.6-8.7); Uric Acid 4.3 mg/dL (2.4-5.7)
== END 2025-01-26 15:42 | disposition home or self-care (01) ==
LOC: OPOB 14:12 → OBGYN 14:12
PROVIDERS: PCP Nurse Practitioner Family; Visit Provider Family Medicine
DX: O13.9 Gestational [pregnancy-induced] hypertension without significant proteinuria, unspecified trimester (principal); Z3A.00 Weeks of gestation of pregnancy not specified
CPT/HCPCS: 36415; 59025; 80053; 81001; 82570; 84156; 84550; 85025; 99211

== ENCOUNTER 2025-01-29 10:15 | Outpatient (CLI) | payer MEDICAID, SELFPAY ==
[2025-01-29] VITALS (10 sets, daily range): BP systolic 132–177; BP diastolic 75–93; PULSE 83–95
[2025-01-29 12:16] LABS: UPRO/UCREAT Ratio 0.12 mg/mg CR
== END 2025-01-29 12:52 | disposition home or self-care (01) ==
LOC: OPOB 10:18 → OBGYN 10:18
PROVIDERS: Family Medicine; Visit Provider Family Medicine
DX: O13.9 Gestational [pregnancy-induced] hypertension without significant proteinuria, unspecified trimester (principal); Z3A.00 Weeks of gestation of pregnancy not specified
CPT/HCPCS: 59025; 82570; 84156; J9999

== ENCOUNTER 2025-02-02 10:38 | Outpatient (CLI) | payer MEDICAID, SELFPAY ==
[2025-02-02 10:39] VITALS: BMI 46.6
[2025-02-02 10:49] VITALS: BP 136/76; PULSE 90
[2025-02-02 11:04] VITALS: BP 137/71; PULSE 84
[2025-02-02 11:17] VITALS: BP 137/71; PULSE 84; RESP 17; O2SAT 98
== END 2025-02-02 11:17 | disposition home or self-care (01) ==
LOC: OPOB 10:40 → OBGYN 10:40
PROVIDERS: Visit Provider Family Medicine
DX: O13.9 Gestational [pregnancy-induced] hypertension without significant proteinuria, unspecified trimester (principal); Z3A.00 Weeks of gestation of pregnancy not specified
CPT/HCPCS: 59025; 99211

== ENCOUNTER 2025-02-05 11:01 | Outpatient (CLI) | payer MEDICAID, SELFPAY ==
[2025-02-05 11:15] VITALS: BP 140/82; PULSE 85; BMI 46.3
[2025-02-05 11:35] VITALS: BP 136/77; PULSE 82
== END 2025-02-05 11:50 | disposition home or self-care (01) ==
LOC: OPOB 11:02 → OBGYN 11:03
PROVIDERS: Visit Provider Family Medicine
DX: O13.9 Gestational [pregnancy-induced] hypertension without significant proteinuria, unspecified trimester (principal); Z3A.00 Weeks of gestation of pregnancy not specified
CPT/HCPCS: 59025; 99211

== ENCOUNTER 2025-02-09 14:16 | Outpatient (CLI) | payer MEDICAID, SELFPAY ==
[2025-02-09 14:26] VITALS: BP 147/92; PULSE 92
[2025-02-09 14:40] VITALS: BP 156/92; PULSE 85
[2025-02-09 14:57] VITALS: BP 144/90; PULSE 93
[2025-02-09 15:00] VITALS: RESP 15; BMI 47.6
[2025-02-09 15:05] VITALS: BP 144/90; PULSE 93; RESP 16
== END 2025-02-09 15:05 | disposition home or self-care (01) ==
LOC: OPOB 14:19 → OBGYN 14:20
PROVIDERS: Visit Provider Family Medicine
DX: O13.9 Gestational [pregnancy-induced] hypertension without significant proteinuria, unspecified trimester (principal); Z3A.00 Weeks of gestation of pregnancy not specified
CPT/HCPCS: 59025

== ENCOUNTER 2025-02-12 10:56 | Outpatient (CLI) | payer MEDICAID, SELFPAY ==
[2025-02-12 10:56] VITALS: BMI 47.4
[2025-02-12 11:07] VITALS: BP 149/82; PULSE 107
[2025-02-12 11:21] VITALS: BP 148/69; PULSE 100
[2025-02-12 11:36] VITALS: BP 148/78; PULSE 102
== END 2025-02-12 11:40 | disposition home or self-care (01) ==
LOC: OPOB 10:59 → OBGYN 11:01
PROVIDERS: Visit Provider Family Medicine
DX: O13.9 Gestational [pregnancy-induced] hypertension without significant proteinuria, unspecified trimester (principal); Z3A.00 Weeks of gestation of pregnancy not specified
CPT/HCPCS: 59025

== ENCOUNTER 2025-02-12 16:42 | Outpatient (CLI) | payer MEDICAID, SELFPAY ==
[2025-02-12] VITALS (21 sets, daily range): BP systolic 112–190; BP diastolic 56–92; PULSE 68–87; RESP 15–17; TEMP 35.8; O2SAT 99; BMI 47.4
[2025-02-12 18:04] LABS: Add Urine Microscopic? NO
[2025-02-12 18:16] LABS: Glucose Urine UA Negative (Normal); Nitrate Urine Negative (Negative); Specific Gravity, Urine 1.008 (1.005-1.030)
[2025-02-12 18:20] LABS: Charge for UA Resulting for Rev
[2025-02-12 18:21] LABS: Hematocrit 32.7 % (36-47); Hemoglobin 10.30 g/dL (11.27-16.99); Mean Corpuscular HGB Conc 31.5 g/dL (30-55); Mean Corpuscular Hemoglobin 23.8 pg (27-33); Mean Corpuscular Volume 75.7 fl (85-98); Nucleated Red Blood Cells % 0 %; Platelet Count 244 10^3/cmm (157-399); Red Blood Count 4.32 10^6/uL (3.85-5.65); White Blood Count 9.56 10^3/uL (3.29-11.43)
[2025-02-12 18:30] LABS: Alanine Aminotransferase 16 U/L (0-33); Albumin Level 3.3 g/dL (3.5-5.2); Alkaline Phosphatase 161 U/L (35-105); Blood Urea Nitrogen 5 mg/dL (6-20); Calcium 8.7 mg/dL (8.5-10.5); Carbon Dioxide 19 mmol/L (22-29); Chloride 100 mmol/L (98-107); Creatinine Clr Calc Pharmacy 293.9379; Globulin 3.7 g/dL (1.3-4.6); Glucose 79 mg/dL (65-115); Osmolality Calculated 270 mOsm/kg (285-295); Sodium 132 mmol/L (136-145); Total Protein 7.0 g/dL (6.6-8.7); Uric Acid 4.3 mg/dL (2.4-5.7)
[2025-02-12 18:37] LABS: Anion Gap 17.1 (5-19); Potassium 4.1 mmol/L (3.5-5.1); UPRO/UCREAT Ratio 0.14 mg/mg CR
[2025-02-12 18:38] LABS: Aspartate Amino Transferase 22 U/L (0-32)
[2025-02-12] MEDS: labetalol 5 mg/mL SDV 20mL 20 MG IVP (18:47)
[2025-02-12] MEDS: metoclopramide 5 mg/mL SDV 2 mL 10 MG IVP (19:14)
[2025-02-12] MEDS: fentaNYL 50 mcg/mL INJ 2mL 25 MCG IVP (19:14)
[2025-02-12] MEDS: lidocaine 2% viscous 15 ML, aluminum-mag hydrox-simethicon 30 ML, sucralfate oral liq 1 GM PO (19:35)
--- NOTE | 2025-02-12 20:40 | PM.SDS ---
Short Stay Summary Providers Date of Admit/Discharge: 02/12/25 Attending Provider: Geoff Samaniego MD Chief Complaint: N/V, cramping, pressure, headache HPI History of Present Illness Kristyn Yan is a 29 year old female that presented at 35 weeks with intractable headache and right upper quadrant pain. The patient also was noted to have some elevations with her blood pressure. Patient has known gestational hypertension and is currently taking labetalol twice daily. The patient has had normal NST earlier today. Review of Systems Const: Denies: fever(s), chills or body aches Eyes: Denies: change in vision ENMT: Denies: throat pain Card: Denies: chest pain Resp: Denies: dyspnea or productive cough GI: Denies: abdominal pain : Denies: flank pain, urinary frequency or dribbling Musc: Denies: neck pain or back pain Skin/Breast: Denies: rash or skin tenderness Tenzin/Lymph: Denies: easy bruising Home Meds/Allergies Home Medications and Allergies Home Medications ?Medication ?Instructions ?Recorded ?Confirmed ?Type empty container (Nasal [place] 1 ea miscellaneous 02/05/25 History Bottle) labetalol 200 mg tablet 200 mg PO BID 02/05/25 02/12/25 History vitamin-ferrous sulfate 1 tab PO DAILY 02/05/25 02/12/25 History 27 mg iron-folic acid 0.8 mg tablet Allergies Allergy/AdvReac Type Severity Reaction Status Date / Time watermelon Allergy Intermediate swellings Verified 09/23/24 10:42 apples Allergy Intermediate ALGY-Bliste Uncoded 09/23/24 10:42 r bananas Allergy Intermediate ALGY-Bliste Uncoded 09/23/24 10:42 r PFSH Acute PFSH: Medical History (Updated 09/23/24 @ 11:05 by Thaddeus Pierce DO) Hypothyroidism Surgical History S/P cholecystectomy Social History Smoking and tobacco/nicotine status: never used tobacco/nicotine Alcohol intake: never Female Reproductive History: : 3 Vitals/I&O/Wt Last Vital Signs Pulse 71 02/12/25 20:34 Resp 17 02/12/25 19:14 BP 114/56 02/12/25 20:34 Weight last 48 hrs Weight 133.356 kg Physical Exam Const: COMMON NORMALS: patient oriented x3 and alert HENMT: COMMON NORMALS: normocephalic, atraumatic and moist oral mucous membranes HEAD & SCALP: normocephalic and atraumatic Neck/C-Spine: COMMON NORMALS: full ROM, no lymphadenopathy, supple, no meningeal signs and no JVD Resp: COMMON NORMALS: normal respiratory effort and No retractions Cardio: COMMON NORMALS: no JVD, regular rate and regular rhythm RATE: regular rate RHYTHM: regular rhythm GI: OTHER: Gravid uterus Extremity: GENERAL: Yes edema Neuro: COMMON NORMALS: patient oriented x3, moves all extremities, no focal motor deficits and no sensory deficits noted SENSORIUM/ORIENTATION: Yes alert MENINGEAL SIGNS: Yes no meningeal signs Psych: COMMON NORMALS: mental status grossly normal, Normal thought process present, cooperative, speech normal and activity/motor behavior normal SPEECH: Yes normal speech THOUGHT PROCESS: Normal thought process present Skin: COMMON NORMALS: no rashes or lesions noted GENERAL SKIN EXAM: no rashes or lesions noted Hospital Course Hospital Course Upon arrival the patient was noted to have upper limit of normal blood pressures but was complaining of significant headache. Labs were obtained and they did not demonstrate any significant abnormality. Protein creatinine ratio was similar to baseline. Patient's blood pressure then started to increase into the severe range and the patient was given labetalol and treatment with her headache with Reglan and fentanyl. Patient had improvement in nausea and significant improvement in blood pressure. Patient states that her headache has persisted but overall she was feeling better. Sumatriptan given some q. was given and the patient had opted to go ahead and go home at this time since things were doing better. Discharge Summary Patient was instructed to continue with twice daily blood pressure readings and continue labetalol twice daily. Discharge Plan Discharge Patient Disposition: Home Prescriptions: No Action labetalol 200 mg Tablet 200 mg PO BID 27 mg iron- 0.8 mg Tablet 1 tab PO DAILY Nasal [place] Bottle Bottle 1 ea miscellaneous Discharge Order = DC NOW: Discharge Order (Routine); Ordered 02/12/25 Ordered By: Geoff Samaniego Diet: Usual diet Activity: Limit activity as instructed Print Language: Spanish Attestations Medical Necessity Statement*: Patient was observed due to intractable headache and blood pressure elevations Time Spent in Patient Care*: greater than 30 min Quality Metrics Clinical Quality Measures: [ No reported AMI, CVA or VTE this stay] Coding Level of Care Code Acute Code for Chg Mar
== END 2025-02-12 21:07 | disposition home or self-care (01) ==
LOC: OPOB 16:45 → OBGYN 16:46
PROVIDERS: Visit Provider Family Medicine
DX: O26.899 Other specified pregnancy related conditions, unspecified trimester (principal); Z3A.00 Weeks of gestation of pregnancy not specified; R11.2 Nausea with vomiting, unspecified; R51.9 Headache, unspecified; R10.9 Unspecified abdominal pain
CPT/HCPCS: 36415; 59025; 80053; 81003; 82570; 83615; 84156; 84550; 85025; 96372; 96374; 99211; J2765; J3010; J3030; J3490; J7120; J9999

== ENCOUNTER 2025-02-13 06:00 | Outpatient (CLI) | payer MEDICAID, SELFPAY ==
--- NOTE | 2025-02-16 10:40 | ANES.PREANE2 ---
Pre-Anesthetic Assessment Height/Weight: Height 1.68 m Operation Date: 03/05/25 07:20 Proposed Procedures p Section Repeat(Not Applicable) - Geoff Samaniego MD Familial anesthetic complications: None Was Beta Stacie taken within 24 hours: N/A Was Clonidine taken within 24 hours: N/A Last intake: > 8 hrs Social No alcohol and No tobacco Exam alert, oriented x 3, clear to auscultation bilaterally and regular rate & rhythm Airway Mallampati: Class III Dentition: full CV/HEM Hypertension (gestational) Metabolic Morbid Obesity and Thyroid Disease Anesthetic Plan ASA status: 3 Anesthesia: Regional (specify below) Risk of > 500 ml blood loss (7ml/kg in children): No Medications/Allergies Home Medications ?Medication ?Instructions ?Recorded ?Confirmed ?Last Taken ?Type empty container (Nasal [place] 1 ea miscellaneous 02/05/25 02/05/25 08:00 History Bottle) labetalol 200 mg tablet 200 mg PO BID 02/05/25 02/12/25 02/12/25 History vitamin-ferrous sulfate 1 tab PO DAILY 02/05/25 02/12/25 02/12/25 History 27 mg iron-folic acid 0.8 mg tablet Allergies Allergy/AdvReac Type Severity Reaction Status Date / Time watermelon Allergy Intermediate swellings Verified 09/23/24 10:42 apples Allergy Intermediate ALGY-Bliste Uncoded 09/23/24 10:42 r bananas Allergy Intermediate ALGY-Bliste Uncoded 09/23/24 10:42 r [facility] Anesthesia Medical History (Updated 09/23/24 @ 11:05 by Thaddeus Pierce DO) Hypothyroidism Surgical History S/P cholecystectomy Social History Smoking and tobacco/nicotine status: never used tobacco/nicotine Alcohol intake: never
== END 2025-02-13 06:01 | disposition home or self-care (01) ==
LOC: OPOB 03-13 06:12
PROVIDERS: PCP Family Medicine; Visit Provider Family Medicine
DX: Z53.8 Procedure and treatment not carried out for other reasons (principal)

== ENCOUNTER 2025-02-13 18:25 | Outpatient (CLI) | payer MEDICAID, SELFPAY ==
[2025-02-13] VITALS (12 sets, daily range): BP systolic 135–145; BP diastolic 70–84; PULSE 78–88; RESP 18; TEMP 36.1; O2SAT 98; BMI 47.4
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
[2025-02-13] MEDS: HYDROcodone-acetaminophen 5-325 mg Tablet 1 TAB PO (21:44)
== END 2025-02-13 21:56 | disposition home or self-care (01) ==
LOC: OPOB 18:31 → OBGYN 18:33
PROVIDERS: Visit Provider Family Medicine
DX: O26.899 Other specified pregnancy related conditions, unspecified trimester (principal); Z3A.00 Weeks of gestation of pregnancy not specified; R10.9 Unspecified abdominal pain
CPT/HCPCS: 59025; 76700; 99211; J9999

== ENCOUNTER 2025-02-16 10:45 | Outpatient (CLI) | payer MEDICAID, SELFPAY ==
[2025-02-16 10:53] VITALS: BP 136/97; PULSE 110
[2025-02-16 10:59] VITALS: RESP 18; BMI 47.7
[2025-02-16 11:20] VITALS: BP 136/75; PULSE 96
== END 2025-02-16 11:23 | disposition home or self-care (01) ==
LOC: OPOB 10:46 → OBGYN 10:47
PROVIDERS: PCP Family Medicine; Visit Provider Family Medicine
DX: O13.9 Gestational [pregnancy-induced] hypertension without significant proteinuria, unspecified trimester (principal); Z3A.00 Weeks of gestation of pregnancy not specified
CPT/HCPCS: 59025

== ENCOUNTER 2025-02-18 16:57 | Inpatient (IN) | payer MEDICAID, SELFPAY ==
[2025-02-18] VITALS (38 sets, daily range): BP systolic 130–157; BP diastolic 66–95; PULSE 47–93; RESP 16–17; TEMP 35.3–35.8; O2SAT 96–100; BMI 48.1
[2025-02-18 18:57] LABS: Nitrazine Paper, PH Negative
[2025-02-18 19:00] LABS: Hematocrit 30.9 % (36-47); Hemoglobin 9.90 g/dL (11.27-16.99); Mean Corpuscular HGB Conc 32.0 g/dL (30-55); Mean Corpuscular Hemoglobin 23.7 pg (27-33); Mean Corpuscular Volume 73.9 fl (85-98); Nucleated Red Blood Cells % 0 %; Platelet Count 273 10^3/cmm (157-399); Red Blood Count 4.18 10^6/uL (3.85-5.65); White Blood Count 8.74 10^3/uL (3.29-11.43)
[2025-02-18] MEDS: metoclopramide 5 mg/mL SDV 2 mL 10 MG IV (19:07)
[2025-02-18] MEDS: citric acid-sodium citrate 30 mL UDC PO (19:25)
[2025-02-18] MEDS: ceFAZolin 3,000 MG in sodium chloride 0.9% (plus) 100 ML 200 MG IV (19:26)
--- NOTE | 2025-02-18 19:37 | PM.OBGYHP ---
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 Patient was evaluated and fluid was noted in the vaginal vault and actiprom was positive. Patient reports occasional contractions. has been complicated by gestational hypertension that has been managed with labetalol. Patient has had several visits to labor and delivery throughout her due to blood pressure elevations and headaches. Preeclamptic workup has been negative. Initial lab work was unremarkable. GBS is unknown known. Patient had previous and plans to do repeat low-transverse . Present Details : 3 Para: 1 Labs Blood type OB HPI: A (+) positive Rubella: Immune RPR: Negative GBS: Unknown HBsAG: Negative Specific History Indications for Section: Repeat Review of Systems Const: Denies: fever(s), chills or body aches Eyes: Denies: change in vision ENMT: Denies: throat pain Card: Denies: chest pain Resp: Denies: dyspnea or productive cough GI: Denies: abdominal pain : Denies: urinary frequency or dribbling Musc: Denies: neck pain or back pain Skin/Breast: Denies: rash or skin tenderness [place]/Lymph: Denies: easy bruising Medications/Allergies Home Medications ?Medication ?Instructions ?Recorded ?Confirmed ?Last Taken ?Type empty container (Nasal [place] 1 ea miscellaneous PRN 02/05/25 02/18/25 02/05/25 08:00 History Bottle) labetalol 200 mg tablet 200 mg PO BID 02/05/25 02/18/25 02/17/25 20:00 History vitamin-ferrous sulfate 1 tab PO DAILY 02/05/25 02/18/25 02/17/25 20:00 History 27 mg iron-folic acid 0.8 mg tablet Allergies Allergy/AdvReac Type Severity Reaction Status Date / Time watermelon Allergy Intermediate swellings Verified 09/23/24 10:42 apples Allergy Intermediate ALGY-Bliste Uncoded 09/23/24 10:42 r bananas Allergy Intermediate ALGY-Bliste Uncoded 09/23/24 10:42 r 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 PFSH: Medical History (Updated 02/18/25 @ 19:43 by Geoff Samaniego MD) Hypothyroidism Surgical History S/P cholecystectomy Social History Smoking and tobacco/nicotine status: never used tobacco/nicotine Alcohol intake: never Vitals/I&O/Wt Last Vital Signs Pulse 83 02/18/25 19:32 Resp 17 02/18/25 17:58 BP 153/90 02/18/25 19:32 O2 Del Method Room Air 02/18/25 18:40 Weight last 48 hrs Weight 135.171 kg Physical Exam Const: COMMON NORMALS: patient oriented x3 and alert HENMT: COMMON NORMALS: normocephalic, atraumatic and moist oral mucous membranes HEAD & SCALP: normocephalic and atraumatic Neck/C-Spine: COMMON NORMALS: full ROM, no lymphadenopathy, supple, no meningeal signs and no JVD Resp: COMMON NORMALS: normal respiratory effort and No retractions Cardio: COMMON NORMALS: no JVD, regular rate and regular rhythm RATE: regular rate RHYTHM: regular rhythm GI: OTHER: Gravid uterus Extremity: GENERAL: Yes edema Neuro: COMMON NORMALS: patient oriented x3, moves all extremities, no focal motor deficits and no sensory deficits noted SENSORIUM/ORIENTATION: Yes alert MENINGEAL SIGNS: Yes no meningeal signs Psych: COMMON NORMALS: mental status grossly normal, Normal thought process present, cooperative, speech normal and activity/motor behavior normal SPEECH: Yes normal speech THOUGHT PROCESS: Normal thought process present Skin: COMMON NORMALS: no rashes or lesions noted GENERAL SKIN EXAM: no rashes or lesions noted Data 02/18/25 18:22 Results Labs OB ([facility]): Obstetrics US 11/18/24 Blood Type Pending Today Antibody Screen Pending Today Hct, (36-47) 30.9 % L Today Hgb, (11.27-16.99) 9.90 g/dL L Today Rho(D) Type Pending Today Plt Count, (157-399) 273 10^3/cmm Today Uric Acid, (2.4-5.7) 4.3 mg/dL 02/12/25 A&P Assessment and plan 1. Gestational hypertension affecting second : Continue blood pressure management. 2. 35 weeks gestation of : We will have peds on-call attend delivery. 3. Rupture of membranes with clear amniotic fluid: The patient appears to be grossly ruptured but not actively jaqueline or having cervical change. Plan is to proceed with repeat low-transverse at this time. PDMP PDMP Reviewed: Not Reviewed Attestations Medical Necessity Statement*: Patient admitted for rupture membranes and repeat low-transverse . Anticipate 2 midnight stay Coding Level of Care Code Acute Code for Chg Fwd Diagnoses Gestational hypertension affecting second O13.9 35 weeks gestation of Z3A.35 Rupture of membranes with clear amniotic fluid
--- NOTE | 2025-02-18 21:33 | P.OP_ITS ---
Operative Report Date of procedure: February 18, 2025 Pre-op diagnosis: Spontaneous rupture membranes, 35-week , gestational hypertension Post-op diagnosis: Same as above, viable infant female Procedure done: Repeat low-transverse Surgeon: Geoff Samaniego MD Anesthesia: Spinal Estimated blood loss (mL): 500 Complications: None Brief History: This is a 29-year-old G3, P2 that presented at 35 weeks 6 days with spontaneous rupture membranes. Patient has history of and was planning to be delivered by repeat low-transverse . Procedure: Patient was taken to the operating room where epidural anesthesia was found to be adequate. She was prepped and draped in the normal sterile fashion in a dorsal supine position with a leftward tilt. Skin incision was made with scalpel and carried out to the underlying layer of fascia which was incised in the midline. Fascial incision was then extended laterally with Rosa scissors bilaterally. The superior aspect of the fascial incision was grasped with Iris clamps elevated and dissected off the rectus muscles with Rosa's. The inferior aspect of the fascial incision was grasped with [place]'s and in likewise manner was elevated and dissected off with Rosa's. Peritoneum was then entered digitally and extended with good visualization of the bladder. Bladder blade was then inserted. Uterine incision was then created in a transverse fashion in the lower uterine segment with scalpel and extended digitally. Meconium stained fluid noted. 's head was attempted to be delivered and was unsuccessful. Transverse section to the lateral rectus was performed and still unable to deliver without additional intervention. Vacuum was placed onto 's head and with 1 single pole 's head was delivered. Total vacuum time was approximately 30 seconds. Once the infant's head was delivered the rest of the was delivered without difficulty. 's mouth was suctioned with bulb suction. Cord was clamped and cut and handed off to the waiting nursing staff. The placenta was then expressed and uterus exteriorized from the abdomen. And cleared of all clots and debris. Uterine incision was then repaired in a running locked fashion with 0 Vicryl. A second suture of 2-0 Vicryl was then used to imbricate the incision. Excellent hemostasis was noted. Uterus was then returned to the abdomen, gutters were cleared of all clots and debris. Lateral rectus muscle was repaired with 0 Vicryl. Peritoneum was then closed in a running fashion with 3-0 Vicryl. Fascia was then closed with 0 Vicryl in a running fashion. Subcutaneous tissue was closed with 3-0 Vicryl and skin was closed with 4-0 Monocryl on a Robbie needle. The incision was reinforced with Steri-Strips and pressure bandage was placed over the wound. Sponge, laps, and needle count was correct x2. 3 g Ancef was given prior to the procedure. Patient was taken recovery in stable condition.
[2025-02-19] VITALS (18 sets, daily range): BP systolic 125–141; BP diastolic 63–79; PULSE 50–75; TEMP 35.2–36.7; O2SAT 97–99
--- NOTE | 2025-02-19 07:29 | P.PN_ITS ---
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 Patient states that her pain is controlled on current interventions. Patient states that she has been up out of bed without difficulty. The patient is currently still has a urinary catheter. Vital signs have been stable. Labor: Station: -5 Amniotic Membrane Status: Unknown Monitor Mode: External Contraction Pattern: Absent Status: Category I Post /CS: Patient comments OB post-: no complaints and pain well controlled baby status: doing well, nursing well and other (Initially needed CPAP but doing well so far.) [place]cd[place]ough feeding status: exclusively breast feeding Vitals/I&O/Wt Last Vital Signs Temp 95.7 F L 02/19/25 04:54 Pulse 59 L 02/19/25 04:54 Resp 16 02/18/25 22:00 BP 125/67 02/19/25 04:54 Pulse Ox 98 02/19/25 00:37 O2 Del Method Room Air 02/18/25 22:00 02/18/25 02/19/25 02/19/25 22:59 06:59 14:59 Intake Total 800 / 800 Output Total 700 / 700 200 / 900 Balance 100 / 100 -200 / -100 Weight last 48 hrs Weight 135.171 kg Physical Exam 2 Const: COMMON NORMALS: patient oriented x3 and alert HENMT: COMMON NORMALS: normocephalic, atraumatic and moist oral mucous membranes HEAD & SCALP: normocephalic and atraumatic Neck/C-Spine: COMMON NORMALS: full ROM, no lymphadenopathy, supple, no meningeal signs and no JVD Resp: COMMON NORMALS: normal respiratory effort and No retractions Cardio: COMMON NORMALS: no JVD, regular rate and regular rhythm RATE: r egular rate RHYTHM: regular rhythm GI: OTHER: Uterus firm and below umbilicus Extremity: GENERAL: Yes edema Neuro: COMMON NORMALS: patient oriented x3, moves all extremities, no focal motor deficits and no sensory deficits noted SENSORIUM/ORIENTATION: Yes alert MENINGEAL SIGNS: Yes no meningeal signs Psych: COMMON NORMALS: mental status grossly normal, Normal thought process present, cooperative, speech normal and activity/motor behavior normal S PEECH: Yes normal speech THOUGHT PROCESS: Normal thought process present Skin: COMMON NORMALS: no rashes or lesions noted GENERAL SKIN EXAM: no rashes or lesions noted WOUNDS: Yes surgical site (Covered with pressure bandage, no obvious drainage) Urinary Catheter Management: Latex Free: Cath Placed During This Visit: yes Reason for Continuing Indwelling Catheter: Required Immobilization for Trauma or Surgery or Anesthesia Urinary Catheter Date of Insertion: 02/18/25 Urinary Catheter Time of Insertion: 20:03 Data 02/18/25 18:22 A&P Assessment and plan 1. Status post repeat low transverse section: Pain is well-controlled. No significant concerns. Continue routine care 2. Gestational hypertension affecting second : Blood pressures doing well since delivery. Continue to monitor PDMP PDMP Reviewed: Not Reviewed Attestations 2 Medical Necessity Statement*: Patient admitted for repeat low-transverse due to premature rupture of membranes. Anticipate greater than 2 midnight stay Coding Level of Care Code Acute Code for Chg Fwd Diagnoses Status post repeat low transverse section Z98.891 Gestational hypertension affecting second O13.9
[2025-02-19] MEDS: ferrous sulfate EC 325 mg Tablet PO ×2 (09:22→17:51)
[2025-02-19] MEDS: PRENATAL VIT NO.130/IRON/FOLIC 1 EACH TABLET PO (09:22)
[2025-02-19 09:52] LABS: Hematocrit 29.3 % (36-47); Hemoglobin 9.40 g/dL (11.27-16.99); Mean Corpuscular HGB Conc 32.1 g/dL (30-55); Mean Corpuscular Hemoglobin 23.8 pg (27-33); Mean Corpuscular Volume 74.2 fl (85-98); Platelet Count 240 10^3/cmm (157-399); Red Blood Count 3.95 10^6/uL (3.85-5.65); White Blood Count 9.15 10^3/uL (3.29-11.43)
[2025-02-20] VITALS (9 sets, daily range): BP systolic 132–186; BP diastolic 70–97; PULSE 66–86; TEMP 36.6–36.9
--- NOTE | 2025-02-20 07:40 | PM.OBGYDC ---
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 Status post repeat low transverse section: 2. Gestational hypertension affecting second : Hospital Course Hospital Course This is a 29-year-old G3, P2 that presented for rupture membranes. Patient was determined to be grossly ruptured and underwent repeat low-transverse . No significant complications during delivery except that it was late . Patient had no complications. Vital signs have been stable. Information Peripartum Data: Infant Delivery Method: complications: none Physical Exam Const: COMMON NORMALS: patient oriented x3 and alert HENMT: COMMON NORMALS: normocephalic, atraumatic and moist oral mucous membranes HEAD & SCALP: normocephalic and atraumatic Neck/C-Spine: COMMON NORMALS: full ROM, no lymphadenopathy, supple, no meningeal signs and no JVD Resp: COMMON NORMALS: normal respiratory effort and No retractions Cardio: COMMON NORMALS: no JVD, regular rate and regular rhythm RATE: regular rate RHYTHM: regular rhythm GI: OTHER: Uterus firm and below umbilicus Extremity: GENERAL: Yes edema Neuro: COMMON NORMALS: patient oriented x3, moves all extremities, no focal motor deficits and no sensory deficits noted SENSORIUM/ORIENTATION: Yes alert MENINGEAL SIGNS: Yes no meningeal signs Psych: COMMON NORMALS: mental status grossly normal, Normal thought process present, cooperative, speech normal and activity/motor behavior normal SPEECH: Yes normal speech THOUGHT PROCESS: Normal thought process present Skin: COMMON NORMALS: no rashes or lesions noted GENERAL SKIN EXAM: no rashes or lesions noted WOUNDS: Yes surgical site (Clean dry and intact) Urinary Catheter Management: Latex Free: Cath Placed During This Visit: yes, but has since been removed by the nurse Reason for Continuing Indwelling Catheter: Decision to DC Catheter Urinary Catheter Date of Insertion: 02/18/25 Urinary Catheter Time of Insertion: 20:03 Date Urinary Catheter Removed: 02/19/25 Time Urinary Catheter Discontinued: 08:30 Discharge Data Studies Completed and Pending Laboratory Results WBC 9.15 10^3/uL (3.29-11.43) 02/19/25 09:20 RBC 3.95 10^6/uL (3.85-5.65) 02/19/25 09:20 Hgb 9.40 g/dL (11.27-16.99) L 02/19/25 09:20 Hct 29.3 % (36-47) L 02/19/25 09:20 MCV 74.2 fl (85-98) L 02/19/25 09:20 MCH 23.8 pg (27-33) L 02/19/25 09:20 MCHC 32.1 g/dL (30-55) 02/19/25 09:20 RDW 14.1 % (12.1-15.1) 02/19/25 09:20 Plt Count 240 10^3/cmm (157-399) 02/19/25 09:20 MPV 10.4 fL (7.4-10.4) 02/19/25 09:20 Neut % (Auto) 72.4 % 02/18/25 18:22 Lymph % (Auto) 19.5 % 02/18/25 18:22 [place] % (Auto) 5.9 % 02/18/25 18:22 Eos % (Auto) 1.3 % 02/18/25 18:22 Baso % (Auto) 0.3 % 02/18/25 18:22 Neut # (Auto) 6.33 10^3/uL (1.8-7.7) 02/18/25 18:22 Lymph # (Auto) 1.7 10^3/uL (0.8-4.8) 02/18/25 18:22 [place] # (Auto) 0.5 10^3/uL (0.2-0.9) 02/18/25 18:22 Eos # (Auto) 0.1 10^3/uL (0.0-0.8) 02/18/25 18:22 Baso # (Auto) 0.0 10^3/uL (0.0-0.1) 02/18/25 18:22 Nucleated RBC % (auto) 0 % 02/18/25 18:22 Nucleated RBCs # 0.0 /100WBC 02/18/25 18:22 Insulin-like GF I Positive 02/18/25 17:27 Fluid pH (paper) Negative 02/18/25 17:33 Blood Type A Positive 02/18/25 18:22 Rho(D) Type Rh positive 02/18/25 18:22 Antibody Screen Negative 02/18/25 18:22 Vitals Last Vital Signs Temp 97.8 F 02/20/25 03:00 Pulse 66 02/20/25 03:07 Resp 16 02/18/25 22:00 BP 132/70 02/20/25 03:07 Pulse Ox 98 02/19/25 00:37 O2 Del Method Room Air 02/18/25 22:00 Results Labs OB ([facility]): Obstetrics US 11/18/24 Blood Type A Positive 02/18/25 Antibody Screen Negative 02/18/25 Hct, (36-47) 29.3 % L 02/19/25 Hgb, (11.27-16.99) 9.40 g/dL L 02/19/25 Rho(D) Type Rh positive 02/18/25 Plt Count, (157-399) 240 10^3/cmm 02/19/25 Uric Acid, (2.4-5.7) 4.3 mg/dL 02/12/25 Discharge Plan Discharge Patient Disposition: Home Condition: Stable Prescriptions: New hydrocodone-acetaminophen 5-325 mg Tablet 1 - 2 tab PO Q4H PRN (Reason: Moderate To Severe Pain) Qty: 20 0RF Continued labetalol 200 mg Tablet 200 mg PO BID vit-ferrous sulfat-FA 27 mg iron- 0.8 mg Tablet 1 tab PO DAILY Nasal [place] Bottle Bottle 1 ea miscellaneous PRN Discharge Order = DC NOW: Discharge Order (Routine); Ordered 02/20/25 Ordered By: Geoff Samaniego Discharge Diet: Usual diet Discharge Activity: Limit activity as instructed Patient Instructions: Depression (DC), Bleeding (DC), Preeclampsia and Eclampsia After Delivery (GEN), Hemorrhage (DC), OB Discharge Report, OB Food/Drug Interaction Guide, Opioid Safety, OB Home Care, OB Proud Parent Packet, Patient Portal & Cristiana Instructions Activity Restrictions/Additional Instructions: Please call Dr. Samaniego's office tomorrow to schedule an appointment to be seen in one week for a post- section incision check. 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
[2025-02-20] MEDS: ferrous sulfate EC 325 mg Tablet PO (10:00)
[2025-02-20] MEDS: PRENATAL VIT NO.130/IRON/FOLIC 1 EACH TABLET PO (10:00)
== END 2025-02-20 17:55 | disposition home or self-care (01) | DRG 788 ==
PROVIDERS: Admitting Provider Family Medicine; PCP Family Medicine; Visit Provider Family Medicine
PROC: 10D00Z1 Extraction of Products of Conception, Low, Open Approach (ICD-10-PCS; CPT 59514; principal; 2025-02-18 20:15)
DX: O60.14X0 Preterm labor third trimester with preterm delivery third trimester, not applicable or unspecified (principal); O34.211 Maternal care for low transverse scar from previous cesarean delivery; N85.8 Other specified noninflammatory disorders of uterus; O77.0 Labor and delivery complicated by meconium in amniotic fluid; Z3A.35 35 weeks gestation of pregnancy; Z37.0 Single live birth; O13.4 Gestational [pregnancy-induced] hypertension without significant proteinuria, complicating childbirth
CPT/HCPCS: 59025; 59409; 83986; 84112; 85025; 85027; 86850; 86900; 99211; G0379; J0690; J1885; J2274; J2405; J2765; J3010; J3490; J7030; J9999